=== PATIENT | male | born 1975 | race Caucasian/White ===

== ENCOUNTER 2019-06-14 11:26 | Day surgery (SDC) ==
[2019-06-14] MEDS ORDERED: LR 1,000 ML ONE (11:54)
[2019-06-14] MEDS ORDERED: KEFZOL 1 GM/D5W 2 GM/100 ML IVPB ONE (11:54)
[2019-06-14] MEDS ORDERED: NAROPIN 0.2% ONE (12:20)
[2019-06-14] MEDS ORDERED: XYLOCAINE 1% ONE (12:20)
[2019-06-14] MEDS ORDERED: DIPRIVAN 1% ONE (12:59)
[2019-06-14] MEDS ORDERED: DILAUDID ONE (12:59)
[2019-06-14] MEDS ORDERED: VERSED ONE (15:21)
[2019-06-14] MEDS ORDERED: FENTANYL ONE (15:21)
[2019-06-14] MEDS ORDERED: QUELICIN (DOSE) ONE (15:22)
[2019-06-14] MEDS ORDERED: DECADRON ONE (15:22)
[2019-06-14] MEDS ORDERED: STERILE WATER INJ. ONE (15:22)
[2019-06-14] MEDS ORDERED: NORCURON ONE (15:22)
[2019-06-14] MEDS ORDERED: OFIRMEV 1000 MG/ISOTONIC SOLN 1,000 MG/100 ML BOTTLE ONE (15:22)
[2019-06-14] MEDS ORDERED: ZOFRAN ONE (15:22)
[2019-06-14] MEDS ORDERED: XYLOCAINE-MPF 2% ONE (15:22)
[2019-06-14] MEDS ORDERED: MARCAINE 0.25% PF ONE (17:47)
[2019-06-14] MEDS: DILAUDID ONE ×4 (18:48→19:04)
[2019-06-14] MEDS ORDERED: LR 500 ML ONE (19:02)
[2019-06-14] MEDS ORDERED: PHENERGAN ONE (19:11)
[2019-06-14] MEDS ORDERED: PERCOCET-5 ONE (19:28)
[2019-06-14] MEDS ORDERED: PERCOCET-5 PO PRN ×2 (20:36→20:37)
[2019-06-14] MEDS ORDERED: MORPHINE IV PRN (20:36)
[2019-06-14] MEDS ORDERED: ZOFRAN PO PRN (20:37)
[2019-06-15 07:30] VITALS: BP 125/57
--- NOTE | 2019-06-15 08:18 | OPERATIVE NOTE ---
PROCEDURE DATE: 06/14/2019 PREOPERATIVE DIAGNOSIS: Left hip labral tear. POSTOPERATIVE DIAGNOSES: 1. Left hip labral tear. 2. Left hip femoroacetabular impingement. PROCEDURES PERFORMED: 1. Left hip arthroscopic labral repair. 2. Left hip arthroscopic acetabuloplasty. SURGEON: Seferino Eng M.D. STEEPING PRESS OPERATOR: Sisi Schmitt, whose presence was needed for retraction and placement of implants. ANESTHESIA: General endotracheal anesthesia with a fascia iliaca block. COMPLICATIONS: None. SPECIMENS: None. BLOOD LOSS: 20 mL. DRAINS: None. IMPLANTS: Liam 2.4 mm cinch lock PEEK suture anchor x4. INDICATIONS FOR PROCEDURE: Mr. Cuevas is a 44-year-old gentleman who has been followed in clinic for complaints of left hip pain for the last several months. He tried and failed conservative treatment modalities, including physical therapy, oral anti-inflammatories. MRI was done showing an anterior labral tear, and x-rays demonstrated a pincer lesion with calcified labrum. Intra- articular steroid injection was done about 8 weeks prior to surgery, and the patient had excellent relief for this for about 6 weeks. However, then his pain began to come back. Given these findings, he wished to proceed with left hip arthroscopic labral repair with acetabuloplasty and femoroplasty as needed. Risks, benefits, and alternative therapies were discussed with the patient regarding surgery. Risks of surgery include, but are not limited to, risks of bleeding, infection, damage to nerves and vessels around the area, continued pain following surgery, need for revision surgery. There are also risks of anesthesia, including blood clot, stroke, heart attack, and even . The patient understands these risks. All questions were answered. Informed consent was obtained. PROCEDURE IN DETAIL: Mr. Cuevas was identified by wrist band, and greeted in the preop holding area on 06/14/2019. His left lower extremity, which was the operative site, was then marked with indelible ink per [facility] Hcvm-[id number]-Ocyd protocol. Following this, the patient was transferred back to the operating room for surgery. Upon entering the OR, he was transferred in the supine position onto a [place] table after general endotracheal anesthesia was induced. Once he was placed on the table, post was placed. His body was shifted over to the right side of the table so the post was in line with his ischial tuberosity. His feet were placed into well-padded boot holders, and secured in routine fashion. At this time, a fascia iliaca block was done by Dr. Maya. Fluoroscopy was then brought in, confirming accurate visualization. [employer] HipCheck System was plugged into fluoroscopy, and our appropriate preoperative images were taken. The patient was found to have minimal cam lesion on all measurements. Given these findings, the decision was made not to proceed with femoroplasty unless his intraoperative pictures deemed necessary. At this time, the left lower extremity was then prepped and draped in a routine sterile fashion. Formal time-out was performed, confirming the correct patient, procedure, operative site, operative side, and administration of preop antibiotics. Everyone was in agreement. The patient received 2 grams of Ancef prior to incision. Fluoroscopy was brought in, and gross traction was pulled to dislocate the hip. The leg was then slightly adducted, and traction was pulled in order to get good access into the joint. At this time, an 18-gauge spinal needle was used to enter through our anterolateral portal. Once we were in the joint, trocar for the needle was removed, and arthrogram image was taken, confirming intra- articular position. We then made a small portal incision using a knife, followed by placement of the dilator. A trocar was then placed in the anterolateral portal, followed by the scope. Once this was done, the scope was inserted without any water flow. Our anterior triangle was then identified, and a spinal needle was used to make our mid anterior portal in routine fashion. Knife was used to dissect through skin. Hemostat was then used to spread in order to help prevent lateral femoral cutaneous nerve injury. Dilator was then placed, followed by trocar into the mid anterior portal. At this time, water was then hooked up and turned on. A [place] blade was placed into our mid anterior portal, and our capsulotomy was performed, going from our mid anterior portal lateral to our anterolateral portal. Scope was then placed into the mid anterior portal, and a knife was placed laterally to complete our capsulotomy. Once this was done, we then had a good view of the labrum and hip joint. The patient was found to have a positive wave sign at the anterior and anterior superior aspect of the labrum. His labrum was found to be significantly hemorrhagic and frayed. He did have gross tearing of the labrum from the acetabular ring. Femoral head overall looked good with minimal arthritis. Other than his positive wave sign of delaminated cartilage in the acetabulum, the remaining acetabular cartilage looked okay. At this time, we used a shaver to debride frayed edges of the labrum. A curved [place] blade knife was then placed through the mid anterior portal, and labrum was sharply removed from the acetabulum. Once this was done, a small bur was used to perform our acetabuloplasty. Fluoroscopy was brought in, confirming adequate removal of the pincer lesion. The patient was found to have a significant pincer lesion. When we were done with our acetabuloplasty, pictures were taken. A distal anterolateral accessory portal was then made using a spinal needle under direct visualization. Once this was done, [place] cannulas were then measured and opened and placed in the mid anterior portal, as well as the anterolateral accessory portal. At this time, we then began placement of our anchors. A Invuityhot suture passer was used to pass FiberTape suture around the labrum, through the cannula. We first placed a curved [place] 2.4 mm cinch lock PEEK anchor. The drill guide and drill were used to drill the hole, and a guide pin was then placed in the hole to donta the spot. Once our suture was passed around the labrum, we then threaded it into the cinch lock anchor, and impacted it in position. The labrum was then tensioned appropriately, and suture was cut flush with the bone. Starting anteriorly, and working our way anterior superior, 4 anchors were placed. Once this was done, the labrum was fully probed and found to have good stable fixation. At this time, a shaver was then placed, and pericapsular fat was debrided, as well as any remaining bone fragments in the joint. We then let traction off in a routine fashion. The patient was found to have good labral seal and suction fit when the femoral head was then reduced. Total traction time was 2 hours. At this time, a shaver was then used to debride pericapsular fat in preparation for capsular closure. The femoral neck was inspected and not found to have any obvious signs of impingement. The knee was flexed up, again showing no signs of impingement after our acetabuloplasty. At this time, a Liam slingshot suture passer was used to pass FiberTape through the distal portion of our capsulotomy. It was then retrieved up through the proximal portion for capsular closure. Once the suture was passed, arthroscopic knot was tied, and the capsule was found to be well approximated. At this time, a spinal needle was then placed into the pericapsular space under direct visualization. We then removed all cannulas, and expressed all fluid from the knee. Portal sites were closed with 3-0 nylon suture. Then, 30 mL of 0.25% Marcaine plain were then injected around the pericapsular area for local anesthetic. At this time, the patient was then transferred over to his hospital stretcher in stable condition. Abduction pillow was placed between his legs. He was then extubated and transferred to recovery. There were no acute complications during the procedure. All sponge and sharp counts were correct at the conclusion of the procedure.
--- NOTE | 2019-06-15 14:30 | ORTHOPAEDICS PROGRESS NOTE ---
DATE: 06/15/2019 SUBJECTIVE: No acute events overnight. Patient was admitted for a 23 hour observation after his left hip arthroscopy yesterday, due to pain control. He has been doing well since he has been on the floor. He states his pain is much more tolerable now. He is tolerating a diet and urinating voluntarily. OBJECTIVE: Afebrile. Vital signs are stable. Extremity Examination: The left lower extremity shows surgical dressing to be clean, dry, and intact. Thigh and calf are soft and compressible. Sensation is intact to light touch, L3 to S1. Dorsalis pedis pulse is palpable and equal bilaterally. Motor is intact EHL, tibialis anterior, gastrocsoleus complex. ASSESSMENT: A 44-year-old male status post left hip arthroscopic labral repair and tensor debridement, postoperative day 1. PLAN: 1. Patient is to be toe-touch weightbearing to the left lower extremity. We will get physical therapy to work with him today on mobilization. 2. Ice to the left thigh as needed for pain. 3. Aspirin for DVT prophylaxis as well as AMRITA hose to be worn at all times until seen back in the clinic. 4. Pain control. 5. Disposition. The patient can be discharged home this morning after working with physical therapy, as long as pain is controlled. I will see him back in clinic in about a week and a half for a wound check.
== END 2019-06-15 10:29 | disposition home or self-care (01) ==
LOC: PAT 11:26 → 4N 11:26 → PAT 06-15 10:29
PROVIDERS: ATTEND Orthopaedic Surgery Sports Medicine

== ENCOUNTER 2019-06-19 11:26 | Observation (INO) ==
[2019-06-19] MEDS ORDERED: ATIVAN IV ONE (11:40)
--- NOTE | 2019-06-19 11:44 | PROVIDER DOCUMENTATION ---
HPI-General Adult - General Stated Complaint: ALLERGIC REACTION Time Seen by Provider: 06/19/19 11:40 Source: patient Allergies/Adverse Reactions: Patient Allergies Allergy/AdvReac Type Severity Reaction Status Date / Time No Known Allergies Allergy Verified 06/19/19 11:42 Home Medications: Home Medication List Medication Instructions Recorded Confirmed Last Taken Type Aspirin [Ecotrin] 325 mg PO DAILY 06/19/19 06/19/19 06/19/19 History Indomethacin S.r. [Indocin Sr] 75 mg PO DAILY 06/19/19 06/19/19 06/19/19 History Oxycodone HCl/Acetaminophen 1 ea PO DIRECTED 06/19/19 06/19/19 06/19/19 History [Oxycodone-Acetaminophen 5-325] - History of Present Illness -Gen Adult Nature of Presenting Problems: Pt. is 44 yom that presents with c/o sudden onset of SOB with some burning in his chest. Pt. reports he recently had hip surgery on Friday. Pt. states his symptoms were getting worse and he felt as though he was going to pass out so he called 911. Pt. denies any other complaints. Location of Pain/Injury: reports: chest. denies: none, head, face, mouth, neck, upper extremity, hand(s), abdomen, back, pelvis, genitalia, lower extremity, feet, upper body, lower body, generalized, other Pain Radiation: reports: no radiation. denies: arm(s), back, buttocks, chest, e pigastric, feet, groin, jaw, flank (L), legs (lower), LLQ, LUQ, neck, periumbilical, flank (R), RLQ, RUQ, shoulder(s), scapula, scrotal, sternal notch, suprapubic, legs (upper), urethral, vaginal, other Quality of Pain: reports: burning. denies: cramping, pressure, tightness Severity: reports: mild. denies: moderate, severe Onset/Duration: reports: abrupt, just prior to arrival Timing: reports: still present. denies: improving, intermittent, getting worse Context/Activities at Onset: reports: recent physical stress. denies: none, light activity, moderate activity, vigorous activity, recent emotional stress, recent trauma history, possible bad food, cold exposure, eating, out of country travel, rest, sleep, sexual activity, other Modifying Factors: improves with: nothing Associated Symptoms: reports: anxiety, chest pain, shortness of breath. denies: denies symptoms, arm pain, back/neck pain, constipation, cough, diaphoresis, diarrhea, dizziness, EENT symptoms, fatigue, fever/chills, genitourinary problems, headaches, heartburn, joint pain, loss of appetite, malaise, muscle aches, sinus congestion/drainage, nausea, rash, seizure, sensory/motor loss, pain with inspiration, swelling/mass in abdomen, syncope, vomiting, weakness, trouble walking, other Similar Symptoms Previously?: No Recently seen or treated by another doctor?: No Review of Systems - Adult - REVIEW OF SYSTEMS - ADULT Constitutional: reports: no symptoms reported Eyes: reports: no symptoms reported Ears, Nose, Mouth & Throat: reports: no symptoms reported Cardiovascular: reports: see HPI, chest pain. denies: orthopnea, palpitations, syncope Respiratory: reports: see HPI, shortness of breath. denies: cough, pleurisy, wheezing Gastrointestinal: reports: no symptoms reported Genitourinary: reports: no symptoms reported Musculoskeletal: reports: no symptoms reported Integumentary: reports: no symptoms reported Neurological: reports: no symptoms reported Psychiatric: reports: see HPI, anxiety. denies: anti-depressant use, insomnia, panic attacks Past History - Adult - PAST MEDICAL HISTORY-ADULT Review of Records: reports: Old Records Reviewed, Nursing Assessment Review, Medications Reviewed, Social history reviewed & non-contributory. - IMMUNIZATION STATUS Childhood Immunizations: See Nurse Assessment Flu Vaccine: See Nurse Assessment - FAMILY HISTORY Family History: reviewed, not pertinent - SOCIAL HISTORY Smoking: denies Physical Exam-General - PHYSICAL EXAM-ADULT Initial Vital Signs Reviewed: Yes - CONSTITUTIONAL General Appearance: alert, moderate distress, anxious. negative: slow to respond, obtunded, combative - EYES Eyes: PERRL/EOMI, pink conjunctivae - HEAD, EARS, NOSE, MOUTH & THROAT HENMT: normocephalic/atraumatic, moist mucous membranes - NECK Neck: non-tender, full range of motion, supple, normal inspection - RESPIRATORY Respiratory: lungs clear, normal breath sounds - CARDIOVASCULAR Cardiovascular: normal peripheral pulses, regular rate, rhythm, no edema - GASTROINTESTINAL (ABDOMEN) Abdominal Exam: normal bowel sounds, non tender, soft - LYMPHATIC Lymphatic: no adenopathy - MUSCULOSKELETAL Back Exam: normal inspection, no CVA tenderness, no vertebral tenderness Extremity: normal range of motion, swelling (Left hip surgery on Friday), tenderness (Left hip surgery on Friday). negative: deformity, erythema Peripheral Pulses: radial (R): 2+, radial (L): 2+ - SKIN Integumentary: normal color, normal turgor, warm/dry - NEUROLOGIC Neurologic: grossly normal, no motor/sensory deficits - PSYCHIATRIC Psych/Mental Status: normal mood/affect, normal thought content, normal thought process, oriented x 3, anxious. negative: depressed affect, paranoid, tearful Progress - PLAN OF CARE/RESULTS Progress/Plan/Lab Results: Orders Category Date Time Status Saline Loc NOW Care 06/19/19 11:39 Ordered CBC WITH ELECTRONIC DIFF [HEME] Stat Lab 06/19/19 11:39 Uncollected COMPREHENSIVE METABOLIC PANEL [CHEM] Stat Lab 06/19/19 11:39 Uncollected TROPONIN T Stat Lab 06/19/19 11:39 Uncollected Lorazepam [Ativan] Med 06/19/19 11:40 Once 1 mg IV NOW ONE EKG [EKG] Stat Ther 06/19/19 11:39 Ordered Result Diagrams: 06/19/19 11:55 06/19/19 11:55 - CONSULTS/PCP/HOSPITALIST Notification #1 *Consult/PCP/Hospitalist*: Dr. Eng Time Discussed: 15:04 Reason/Comments: Consult Consult Disposition: other (Ok to anticoagulate) #2 Consult: Lola francis hospitilist Time Discussed: 15:09 Reason/Comments: Admit Consult Disposition: Will see in ED, Admit Departure - Departure Date of Disposition Decision: 06/19/19 Time of Disposition Decision: 15:09 DIAGNOSIS: Pulmonary embolism Qualifiers: Pulmonary embolism type: unspecified Chronicity: acute Acute cor pulmonale presence: unspecified Qualified Code(s): I26.99 - Other pulmonary embolism without acute cor pulmonale Disposition: ADMITTED INPATIENT 09 Certified Medical Emergency: Emergent Condition: Stable Referrals and Follow-Ups: Mike Huynh MD [Primary Care Provider] - - Critical Care Note This patient required my direct & personal management of CC.: No Attestation - Physician/ KEM Attestation Patient care was provided by Advanced Practice Provider:: Yes Advanced Practice Provider:: Ester Thoams Advanced Practice Provider documentation review:: The Mid-level provider documentation, treatment plan and medical decision making was reviewed by the physician who agrees with all treatment and medical decision making by the MLP. The physician spent face to face time with patient:: No Advanced Practice Provider documentation review:: Supervising physician onsite and consulted in the evaluation and care of this patient. The physician did not have a face to face encounter with the patient.
[2019-06-19 12:10] LABS: BASO# 0.03 X1000 (0.0-0.2); BASO% 0.4 % (0.0-0.8); EOS# 0.08 X1000 (0.0-0.7); EOS% 1.2 % (0.0-10.0); HEMATOCRIT 43.8 % (42.0-52.0); LYMPH# 2.17 X1000 (1.2-3.4); LYMPH% 31.8 % (20.5-51.1); MCH 30.2 PG (27-31); MCHC 34.2 g/dL (33-37); MCV 88.1 FL (81-99); MONO# 0.83 X1000 (0.11-0.59); MONO% 12.2 % (1.7-9.3); MPV 10.5 FL (7.4-10.4); NEUT# 3.72 X1000 (1.4-6.5); NEUT% 54.4 % (42.2-75.2); PLT 224 X1000 (130-400); RBC 4.97 XMIL (4.7-6.1); RDW 12.3 % (11.5-14.5); WBC 6.83 X1000 (4.8-10.8)
[2019-06-19 12:29] LABS: ALBUMIN 4.1 g/dL (3.5-5.0); CALCIUM 8.8 mg/dL (8.8-10.2); CREATININE 1.4 mg/dL (0.7-1.2); POTASSIUM 4.2 mmol/L (3.5-5.1); TOTAL BILIRUBIN 0.68 mg/dL (0.20-1.00); TOTAL PROTEIN 6.2 g/dL (6.3-8.3)
--- NOTE | 2019-06-19 14:05 | ED EKG INTERP ---
This chart was entered by Lesley Ochoa Scribe, acting as scribe for Andrae Norman MD. EKG Interpretation - EKG Time of EKG reading by physician:: 12:16 EKG Read and Signed by:: Andrae Norman EKG Interpretation (*Must complete 3 of following elements*): Normal Rate: 77 Rhythm: nsr Wesley: normal QRS: normal LA Interval: normal ST Wave: normal Attestation - Physician/ KEM Attestation Patient care was provided by Advanced Practice Provider:: Yes Advanced Practice Provider documentation review:: The Mid-level provider documentation, treatment plan and medical decision making was reviewed by the physician who agrees with all treatment and medical decision making by the MLP. The physician spent face to face time with patient:: No Advanced Practice Provider documentation review:: Supervising physician onsite and consulted in the evaluation and care of this patient. The physician did not have a face to face encounter with the patient. This chart was documented by the indicated scribe, (Lesley Ochoa Scribe) and accurately reflects the services I performed and decisions made by Emerson stapleton Alex T., MD, as attested by the provider's signature.
[2019-06-19] MEDS ORDERED: PERCOCET-5 PO ONE (14:33)
--- NOTE | 2019-06-19 14:55 | Diag Imaging Result Doc PS360 ---
EXAM: CT ANGIOGRAM PULMONARY ARTERIES - 06/19/2019 HISTORY: Sudden SOB TECHNIQUE: CT angiogram pulmonary arteries with intravenous contrast. Axial, 2-D coronal MIP, and 3-D MIP images are obtained. COMPARISON: None. FINDINGS: There is a filling defect at the branch point of the right lower lobe main pulmonary artery, with extension into the proximal branches. This is consistent with pulmonary embolus. There are no other pulmonary artery filling defects identified. There is no indication of aortic dissection. The lungs appear clear except for mild dependent atelectasis. There is no pleural effusion or pneumothorax identified. IMPRESSION: Pulmonary embolus at branch point of right lower lobe pulmonary artery. This report was discussed with Que Thomas on 06/19/2019 at 2:54 PM and was readback. Electronically signed by Mati Paiz 06/19/2019 2:53 PM
[2019-06-19] MEDS ORDERED: LOVENOX 1 MG/KG SUBQ ONE (15:08)
[2019-06-19] MEDS ORDERED: LOVENOX SUBQ ONE (15:30)
[2019-06-19] MEDS ORDERED: ZOFRAN IV PRN (15:41)
[2019-06-19] MEDS ORDERED: LOVENOX 1 MG/KG SUBQ SCH (15:45)
--- NOTE | 2019-06-19 16:06 | EKG Report ---
Test Performed on : 06/19/2019 12:16:09 PM Test Reason : CP Blood Pressure : / mmHG Vent. Rate : 077 BPM Atrial Rate : 077 BPM P-R Int : 164 ms QRS Dur : 094 ms QT Int : 376 ms P-R-T Axes : 041 013 006 degrees QTc Int : 425 ms Normal sinus rhythm. Normal ECG No previous ECGs available Unconfirmed Result
[2019-06-19 16:10] LABS: INR 1.06
[2019-06-19 16:11] LABS: PTT 26.3 Seconds (22.3-41.8)
[2019-06-19] MEDS: NS 1,000 ML IV SCH (16:20)
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
--- NOTE | 2019-06-19 18:39 | ORTHOPAEDICS CONSULTATION ---
DATE: 06/19/2019 [facility]. REASON FOR CONSULTATION: Status post left hip arthroscopy. PAST MEDICAL HISTORY: None. PAST SURGICAL HISTORY: Left hip arthroscopic labral repair and acetabuloplasty on 06/14/2019. MEDICATIONS: 1. Aspirin 325 mg. 2. Indocin 75 mg. 3. Percocet 5 mg. All medications have only been taken since his surgery 5 days ago. He is not on chronic long- term medication. ALLERGIES: No known drug allergies. SOCIAL HISTORY: Patient lives in [place]. He is and lives with his and kids. He denies any tobacco, alcohol, drug use. FAMILY HISTORY: The patient denies any history of hypercoagulable disease or blood clots in his family. Otherwise noncontributory. REVIEW OF SYSTEMS: Ten point review of system was reviewed with the patient and is negative other than history of present illness. CHIEF COMPLAINT: Shortness of breath. HISTORY OF PRESENT ILLNESS: Mr. Cuevas is a 44-year-old gentleman who is a patient of [facility] who recently underwent left hip arthroscopic labral repair on 06/14/2019. He was discharged on postop day 1 and had an uneventful recovery up until today. He states he was doing better as far as his pain goes up until this morning. He states today he felt an all of a sudden sense of panic and anxiety including burning pain in his right side of his chest. He felt like he was going to pass out was having heart palpitations so he called 911 and was taken to the ER for evaluation. Upon evaluation in the ER, pulmonary arteriogram was performed demonstrating pulmonary embolus in the right lower lobe. Orthopedics was consulted given his recent surgery. Patient states he has been taking aspirin 325 mg as instructed since surgery. He was wearing his AMRITA hose at all times as instructed up until yesterday when he began to take them off. He has been ambulating and trying to get around being touchdown weightbearing on the left lower extremity and using crutches for mobilization. He states overall he feels like his hip is doing better. PHYSICAL EXAMINATION: General: Mr. Cuevas is a 44-year-old male appears well nourished, well developed, no acute distress. He is awake, alert, oriented x3. He is very polite and cooperative during examination. Vital Signs: Temperature 97.6 degrees Fahrenheit, heart rate 75, blood pressure 116/75, O2 saturations 96% on room air and 99% on 2 L by nasal cannula. HEENT: Normocephalic, atraumatic. Respiratory: Nonlabored breathing. Cardiovascular: Regular rate and rhythm. Extremities: Examination of left lower extremity shows surgical incisions to be clean, dry, and intact. No erythema, fluctuance, or drainage around his incision sites. No signs of infection. Thigh and calf are soft and compressible. Motor is intact quadriceps, hamstrings, EHL, tibialis anterior, gastrocsoleus complex. Sensation intact to light touch L3-S1. Dorsalis pedis pulse is palpable and equal bilaterally. Negative Homans sign. LABORATORY DATA: White count 6.8, hemoglobin 15, hematocrit 44, platelets 224,000. ASSESSMENT: A 44-year-old male status post left hip arthroscopic labral repair and acetabuloplasty on 06/14/2019 with subsequent pulmonary embolus. PLAN: 1. Patient is to remain toe-touch weightbearing on his left lower extremity. He can mobilize on his own using a walker or crutches as he has been doing at home. 2. Ice to the left lower extremity as needed for pain. 3. Tylenol scheduled and oxycodone p.r.n. for breakthrough pain. 4. The patient is to be admitted to the hospitalist service. Appreciate their recommendations on long-term anticoagulation given his recent blood clot and pulmonary embolus. He has currently received a therapeutic dose of Lovenox. They are checking his efficacy and affordability of Eliquis to be discharged home with. He will plan on following up with Hematology as outpatient. 5. Disposition per primary team. I will plan on seeing him back in clinic at his previously scheduled appointment in about a week and a half. I will continue to follow along while in- house.
[2019-06-19] MEDS: PERCOCET-5 PO PRN (20:00)
[2019-06-20] MEDS: NS 1,000 ML IV SCH ×3 (00:19→16:46)
[2019-06-20] MEDS: PERCOCET-5 PO PRN ×4 (00:27→20:13)
[2019-06-20] MEDS: LOVENOX SUBQ SCH ×2 (05:08→16:45)
[2019-06-20 06:58] LABS: BASO# 0.04 X1000 (0.0-0.2); BASO% 0.7 % (0.0-0.8); EOS% 1.7 % (0.0-10.0); HEMATOCRIT 42.6 % (42.0-52.0); IMM GRAN# 0.02 X1000 (0.0-0.04); IMM GRAN% 0.3 % (0.0-0.5); LYMPH# 1.96 X1000 (1.2-3.4); LYMPH% 32.5 % (20.5-51.1); MCH 29.6 PG (27-31); MCHC 32.9 g/dL (33-37); MCV 90.1 FL (81-99); MONO# 0.67 X1000 (0.11-0.59); MONO% 11.1 % (1.7-9.3); MPV 10.2 FL (7.4-10.4); NEUT# 3.25 X1000 (1.4-6.5); NEUT% 53.7 % (42.2-75.2); PLT 196 X1000 (130-400); RBC 4.73 XMIL (4.7-6.1); RDW 12.7 % (11.5-14.5); WBC 6.04 X1000 (4.8-10.8)
[2019-06-20 07:30] LABS: AGAP 9; ALBUMIN 3.6 g/dL (3.5-5.0); BUN 11 mg/dL (8-22); CALCIUM 7.9 mg/dL (8.8-10.2); CHLORIDE 104 mmol/L (98-107); COSMO 271; ESTIMATED GFR > 60; GLUCOSE 91 mg/dL (70-104); PHOSPHORUS 3.1 mg/dL (2.7-4.5); POTASSIUM 4.3 mmol/L (3.5-5.1); SODIUM 136 mmol/L (136-145); TCO2 23 mmol/L (25-35)
[2019-06-20] MEDS ORDERED: INDOCIN PO SCH (09:00)
[2019-06-20] MEDS ORDERED: PRILOSEC PO ONE (12:00)
--- NOTE | 2019-06-20 14:05 | ORTHOPAEDICS PROGRESS NOTE ---
DATE: 06/20/2019 SUBJECTIVE: No acute events overnight. The patient states his leg is feeling fine and occasionally has some aches in the leg. He still reports the leg feeling swollen compared to the contralateral side since his surgery. He has been compliant with weightbearing status. No other complaints. OBJECTIVE: Hematocrit 43. Vital signs stable.Extremity: Examination left lower extremity shows surgical incisions to be clean, dry, intact. No sign of infection. Thigh and calf were soft and compressible. This is mild swelling on the left side compared to the right, likely secondary to normal postop changes. Neurovascularly intact left lower extremity. Negative Homans sign on the left. ASSESSMENT: 44-year-old male status post left hip arthroscopic labral repair, an acetabuloplasty with subsequent pulmonary embolus. PLAN: 1. Patient is to be toe-touch weightbearing left lower extremity. He can ambulate with crutches or walker as previously instructed. 2. Currently on therapeutic Lovenox. Awaiting primary care team for final anticoagulation plan given his recent pulmonary embolus. 3. Ice left lower extremity as needed for pain. DISPOSITION: Per primary team. The patient reports that he has to stay in the hospital for 48 hours for monitoring after the blood clot. I will plan on seeing him in clinic in 10 to 14 days for wound check and suture removal.
--- NOTE | 2019-06-20 15:42 | PROGRESS NOTE ---
DATE: 06/20/2019 SUBJECTIVE: Patient has no major complaints. OBJECTIVE: Blood pressure is 167/84, heart rate 84, respiratory rate is 17, temperature 98.6 degrees, 100% on room air. Cardiovascular: Regular rate and rhythm. Pulmonary: Bilateral breath sounds clear to auscultation. GI: Soft, nontender, nondistended. Bowel sounds were positive. Extremities have no clubbing or cyanosis. Lymphatic Examination: No peripheral edema. Neurological: Examination was nonfocal. Laboratory Data: As described. He did have an episode today where he had some chest discomfort. PROBLEM LIST: Pulmonary embolism. He did have a blood clot in the right pulmonary artery at the branching. We will continue anticoagulation. We will look at getting set up with anticoagulation and see how he does. He had a recent orthopedic procedure so that is probably what is put him at risk. He has no family history of deep venous thrombosis or pulmonary embolism, although his father in his late 40s due to I believe a work related accident. The mother was in her 50s but was morbidly obese. We will see if Kelsey is available for testing. I advised him that we needs stop Indocin and aspirin, which I am assuming the Indocin was for pain control and the aspirin was for deep venous thrombosis prophylaxis. Avoid nonsteroidal anti-inflammatory drugs at this point. Start to encourage ambulation and follow. DISPOSITION: Pending his clinical status. cc: Fernando Lee MD
--- NOTE | 2019-06-20 16:18 | EKG Report ---
Test Performed on : 06/20/2019 3:10:30 PM Test Reason : tachycardia Blood Pressure : / mmHG Vent. Rate : 076 BPM Atrial Rate : 076 BPM P-R Int : 164 ms QRS Dur : 092 ms QT Int : 362 ms P-R-T Axes : 041 011 002 degrees QTc Int : 407 ms Normal sinus rhythm. Normal ECG When compared with ECG of 19-JUN-2019 12:16, (Unconfirmed) No significant change was found Confirmed by Nidia LLANOS, Didier ([id number]) on 06/22/2019 8:54:01 AM
[2019-06-21] MEDS: PERCOCET-5 PO PRN ×3 (03:12→18:18)
[2019-06-21] MEDS: TYLENOL PO PRN (04:20)
[2019-06-21] MEDS: LOVENOX SUBQ SCH (05:34)
[2019-06-21] MEDS: PRILOSEC PO SCH ×2 (05:35→07:18)
[2019-06-21] MEDS: NS 1,000 ML IV SCH ×2 (05:35→16:28)
[2019-06-21 08:08] LABS: BASO# 0.03 X1000 (0.0-0.2); BASO% 0.6 % (0.0-0.8); EOS# 0.08 X1000 (0.0-0.7); EOS% 1.5 % (0.0-10.0); HEMATOCRIT 43.7 % (42.0-52.0); HEMOGLOBIN 14.4 g/dL (14.0-18.0); LYMPH# 2.09 X1000 (1.2-3.4); LYMPH% 39.7 % (20.5-51.1); MCH 29.7 PG (27-31); MCV 90.1 FL (81-99); MONO# 0.51 X1000 (0.11-0.59); MONO% 9.7 % (1.7-9.3); MPV 10.7 FL (7.4-10.4); NEUT# 2.55 X1000 (1.4-6.5); NEUT% 48.5 % (42.2-75.2); PLT 216 X1000 (130-400); RBC 4.85 XMIL (4.7-6.1); RDW 12.6 % (11.5-14.5); WBC 5.26 X1000 (4.8-10.8)
--- NOTE | 2019-06-21 08:21 | ORTHOPAEDICS PROGRESS NOTE ---
DATE: 06/21/2019 SUBJECTIVE: No acute events overnight. The patient has been mobilizing toe-touch weightbearing on the left leg as instructed. He still reports some mild pain in his thigh, as well as swelling in the left lower extremity. He had an echo, EKG, and Doppler ultrasound of the left lower extremity yesterday. We are waiting on the results from these studies. He is currently on therapeutic Lovenox. He is ready to go home once everything is set up. OBJECTIVE: Extremities: Examination of the left lower extremity shows surgical incisions to be healing with sutures in place. No erythema, fluctuance, or sign of infection around the surgical incisions. His thigh and calf are soft and compressible. He is able to do straight leg raise. Motor intact, quadriceps, hamstrings, EHL, tibialis anterior, gastrocsoleus complex. Sensation intact to light touch, L3-S1. Dorsalis pedis pulse palpable and equal bilaterally. ASSESSMENT: A 44-year-old male status post left hip arthroscopic labral repair with subsequent deep venous thrombosis. PLAN: 1. The patient can continue to be toe-touch weightbearing, left lower extremity. He needs to use crutches to get around. I discussed hip precautions with him in detail again today. 2. He is on Lovenox for DVT prophylaxis. The plan is to be discharged on Eliquis. He will have a followup appointment with invoice coder, as well as his primary care physician to monitor this. 3. Ice to left lower extremity as needed for pain. 4. Disposition is per primary team. Plan is to discharge him home later today. I will see him in clinic in 1 week for suture removal and followup surgical evaluation.
[2019-06-21 08:30] LABS: AGAP 11; BUN 9 mg/dL (8-22); CALCIUM 8.7 mg/dL (8.8-10.2); CHLORIDE 105 mmol/L (98-107); COSMO 281; ESTIMATED GFR > 60; GLUCOSE 77 mg/dL (70-104); POTASSIUM 4.1 mmol/L (3.5-5.1); SODIUM 142 mmol/L (136-145); TCO2 26 mmol/L (25-35)
--- NOTE | 2019-06-21 08:39 | ECHO REPORT ---
ORDER DATE: 06/20/2019 INTERPRETING PHYSICIAN: Dr. Pal REQUESTING PHYSICIAN: CLINICAL INDICATIONS: This is a 44-year-old male with pulmonary embolism. M-MODE MEASUREMENTS: Right ventricle: cm. Left ventricle end diastole: 5.6 cm. Left ventricle end systole: 3.6 cm. Posterior wall: 1.0 cm. Interventricular septum: 1.0 cm. Left atrium: 3.8 cm. Aortic root: 3.6 cm. SUMMARY OF 2-DIMENSIONAL IMAGIN. The left ventricular function is normal. Ejection fraction is estimated at 65% to 70%. There is no wall motion abnormality noted. 2. Aortic valve appears to be normal. Color flow mapping is unremarkable. 3. Mitral valve appears to be normal. Color flow mapping is unremarkable. 4. Pulse wave Doppler of mitral inflow is normal. 5. Tissue Doppler of septal and lateral mitral annulus averages 18 cm. 6. There is no diastolic dysfunction. 7. The pulmonary venous flow is normal. 8. Mitral valve showed very mild degree of regurgitation. 9. Pulmonic valve looks normal with mild degree of regurgitation. 10.Tricuspid valve looks normal. Color flow mapping indicates mild degree of regurgitation. 11.Inferior vena cava is not dilated. 12.Pulmonary pressure is estimated at 24 to 29 mmHg. 13.The atria appear to be normal. 14.The right ventricle appears to be normal. 15.There is no pericardial effusion, mass or thrombus. SUMMARY: This echocardiographic study appears to be grossly within normal limits. cc: MD Fernando Aguirre MD
--- NOTE | 2019-06-21 12:25 | PROGRESS NOTE ---
DATE: 06/21/2019 SUBJECTIVE: The patient is resting in bed. OBJECTIVE: Vital Signs: Temperature 98.3 degrees, pulse 81, respiratory rate 17, blood pressure 127/76, oxygen saturation is 99%. HEENT: He is atraumatic, normocephalic. Cardiovascular System: S1, S2. Respiratory System: Has evidence of good air entry bilaterally. Abdomen: Soft, nontender. No masses felt. Extremities: No evidence of edema. Central Nervous System: No obvious focal deficits noted. Laboratory Data: A 2D echocardiogram of the heart is reported as grossly normal. EKG shows normal EKG. WBCs 5.26, hematocrit 43.7, with a platelet count of 216,000. Sodium is 142, potassium 4.1, chloride is 105, bicarb 26, BUN is 9, creatinine is 1.0. ASSESSMENT AND PLAN: 1. Acute pulmonary thromboembolism. The patient is currently on Lovenox 1 mg/kg of body weight twice a day. A 2D echocardiogram of the heart does not show any evidence of right ventricular strain. We will transition to oral Eliquis and consult with hematology. The patient reports having Doppler of the lower extremities but I do not see where it has been posted in the system yet. 2. Status post recent left hip surgery. Orthopedic team following. 3. Acute kidney injury. Resolved. 4. Disposition. The patient can potentially be discharged home today once cleared by hematology. cc: Reji Ramirez MD
[2019-06-21] MEDS: ELIQUIS PO SCH (20:17)
--- NOTE | 2019-06-21 21:37 | Diag Imaging Result Doc PS360 ---
CT HEAD W/O CONTRAST - 06/21/2019 INDICATION: headache COMPARISON: None FINDINGS: The ventricles and sulci are normal in size and contour. No intracranial mass or hemorrhage. The skull is intact. The sinuses mastoids and middle ears are clear. IMPRESSION: Negative exam. This exam was performed using automated exposure control, adjustment of mA or kV according to patient size, and/or use of iterative reconstruction technique Electronically signed by Jaskaran Garber 06/21/2019 9:34 PM
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
[2019-06-22] MEDS: NS 1,000 ML IV SCH (02:15)
[2019-06-22] MEDS: PERCOCET-5 PO PRN (04:55)
[2019-06-22] MEDS: PRILOSEC PO SCH ×2 (04:56→06:04)
[2019-06-22] MEDS: ELIQUIS PO SCH (08:41)
[2019-06-22] MEDS: TYLENOL PO PRN (08:41)
--- NOTE | 2019-06-22 10:12 | DISCHARGE SUMMARY ---
ADMISSION DATE: 06/19/2019 DISCHARGE DATE: 06/22/2019 HISTORY OF PRESENT ILLNESS: His doctor is Dr. Mike Huynh. He is also followed by paper deliverer, Dr. Eren Love. Presented with shortness of breath. A 44-year-old gentleman with no prior history. Underwent left hip arthroscopic labral repair on the left hip on 06/14/2019. He stated he was doing fine. He was sitting up in a chair and working on his computer. Had sudden shortness of breath. Presented and found to have pulmonary emboli. HOSPITAL COURSE: He was started on Lovenox and he got 1 mg/kg q.12 subcutaneously, changed over to Eliquis. He is improved clinically. He is able to ambulate around and he would like to go home. He will be on the Eliquis a minimum of 6 months, probably a year, so we will discharge him on Eliquis 10 mg. He was loaded on 10 mg b.i.d. for a total of 13 doses. I think he will switch over on the of this month to 5 mg b.i.d. and I will get him ready to go home. Review of his pulmonary arteriogram, 06/19/2019, pulmonary emboli at branch point of right lower pulmonary artery. He was seen by Dr. Seferino Eng. He is to remain toe-touch weightbearing on his left upper extremity using crutches. He had an echocardiogram with Doppler on 06/20/2019. Normal left ventricular function, ejection fraction of 65-70%. His valvular function was normal. He had a CT of his head done because of headache and it was negative, CT without contrast, no acute pathology. Dr. Childress had followed along and felt he was ready go home on his Eliquis. DISCHARGE MEDICATIONS: He was getting oxycodone as needed for pain and I will put him on Eliquis 10 mg twice a day. That will be 5 more days and then go to 5 mg b.i.d. maintenance dose, followed by Dr. Mike Huynh. cc: William Bertrand MD
[2019-06-22 11:29] VITALS: BP 136/78
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
--- NOTE | 2019-06-22 19:15 | Extremity Venous Study ---
PROCEDURE NAME: Venous U/S Bilateral Legs - 06/20/2019 REQUESTING PHYSICIAN: Fernando Lee MD. AIR AND WATER FILLER: Soo Niño RVT. INDICATIONS: 1. Positive pulmonary embolism. 2. Postoperative state. 3. Shortness of breath. EQUIPMENT: [employer] E9 Ultrasound System with a 9L-D transducer. FINDINGS: Images of the bilateral lower extremity venous systems were obtained in both sagittal and transverse planes. Doppler was used to evaluate veins for spontaneity, phasicity, respiratory excursion, and digital augmentation. RESULTS: Normal venous compression. Normal venous flow. No obvious superficial or deep venous thrombosis noted. INTERPRETATION: Essentially normal bilateral lower extremity venous study. cc: MD Fernando Mondragon MD
[2019-06-28] MEDS ORDERED: ELIQUIS PO SCH (09:00)
== END 2019-06-22 12:20 | disposition home or self-care (01) ==
LOC: SUPCPDRO → ED 11:26 → INTOOBSV 11:27 → SUATTDRO 11:27 → EDIPHOLD 11:27 → 3N 17:56
PROVIDERS: ATTEND Emergency Medicine